=== PATIENT | female | born 1965 | race Caucasian/White ===

== ENCOUNTER → 2019-01-08 | Outpatient (CLI) | payer BC ==
--- NOTE | 2019-01-08 09:40 | Diagnostic Imaging Report ---
INDICATION: Back pain. No prior examinations are available for comparison. Three views were obtained. FINDINGS: There is left convexity degenerative lumbar rotoscoliosis. The vertebral body heights are well-maintained. There is no spondylolysis or spondylolisthesis. No fractures are identified. There is multilevel degenerative disc disease throughout the lumbar spine. IMPRESSION: Diffuse lumbar spondylosis and multilevel degenerative disc disease with left convexity degenerative lumbar rotoscoliosis. Dictated by: Dictated on workstation # [id number]
== END ==
LOC: RAD FS 09:15
PROVIDERS: ATTEND Nurse Practitioner Family
DX: M47.816 Spondylosis without myelopathy or radiculopathy, lumbar region (principal); M51.36 Other intervertebral disc degeneration, lumbar region; M41.86 Other forms of scoliosis, lumbar region
CPT/HCPCS: 72100

== ENCOUNTER → 2019-01-14 | Outpatient (CLI) | payer BC ==
--- NOTE | 2019-01-14 15:10 | Diagnostic Imaging Report ---
PROCEDURE: MRI lumbar spine. TECHNIQUE: Multiplanar, multisequence MRI of the lumbar spine was performed without contrast. INDICATION: Low back pain and right buttock pain as well as scoliosis. No prior MRI studies are available for comparison. There is significant left convexity lumbar scoliotic curvature. Minimal retrolisthesis of L1 on L2, L2 on L3 and L3 on L4 is noted. Vertebral body heights are maintained. The marrow signal intensity is unremarkable. No geographic marrow lesion or acute compression fracture is detected. There is significant degenerative disease at all levels of the lumbar spine with significant disc space narrowing, desiccation as well as endplate osteophyte formation. Conus is unremarkable at the L1 level. T12-L1: Central canal and neural foramina are widely patent. L1-L2: Central canal is widely patent. No significant neuroforaminal narrowing is seen. L2-L3: There is endplate osteophytes flattening the ventral thecal sac. The central canal though remains patent. There is narrowing of the right lateral recess. Neural foramina are patent. L3-L4: There is some ligamentous thickening and hypertrophic facet changes creating a trefoil configuration of the sac. Moderate central canal stenosis is seen. There appears to be moderate bilateral neural foraminal stenosis and bilateral lateral recess stenosis. L4-L5: Ligamentous thickening and facet hypertrophy with broad-based disc/osteophyte complex produces severe trefoil stenosis of the canal. Asymmetric midline/left paramidline broad-based disc/osteophyte complex produces significant left lateral recess narrowing as well. Right neural foramen is patent. There is moderate left neural foraminal narrowing. L5-S1: Broad-based disc/osteophyte complex indents the ventral thecal sac. There is mild narrowing of the canal. There is significant narrowing of the left lateral recess and [id number] left neural foraminal narrowing. Right neural foramen is patent. Paraspinous tissues are unremarkable. IMPRESSION: Spondylosis and scoliosis with multilevel central canal, lateral recess and neural foraminal stenosis described level by level above. Dictated by: Dictated on workstation # [id number]
== END ==
LOC: RAD 13:42
PROVIDERS: ATTEND Nurse Practitioner Family
DX: M48.07 Spinal stenosis, lumbosacral region (principal); M25.78 Osteophyte, vertebrae; M41.86 Other forms of scoliosis, lumbar region; M47.816 Spondylosis without myelopathy or radiculopathy, lumbar region; M51.36 Other intervertebral disc degeneration, lumbar region
CPT/HCPCS: 72148